=== PATIENT | female | born 1955 | race Caucasian/White ===

== ENCOUNTER → 2022-11-13 | Day surgery (SDC) | payer OTHER, MEDICARE ==
[2022-11-10 12:01] LABS: Hematocrit 42.3 % (36.0-45.0); Lymphocytes % 15.3 % (15.3-44.8); MCV 92.7 fL (80-100); MPV 7.3 fL (7.6-11.3); RBC Red Blood Cell Count 4.57 M/uL (3.86-4.86)
[2022-11-10 12:13] LABS: Potassium 4.1 mEq/L (3.5-5.1)
--- NOTE | 2022-11-12 13:58 | EKG ---
Test Date: 2022-11-10 Test Time: 11:42:05 [employer]: TIFFANY MEASUREMENT RESULTS: Intervals: Rate: 76 DE: 154 QRSD: 96 QT: 414 QTc: 465 [place]: P: 45 DE: 154 QRS: -15 T: 10 INTERPRETIVE STATEMENTS: Normal sinus rhythm Minimal voltage criteria for LVH, may be normal variant Borderline ECG No previous ECG available for comparison Electronically Signed On 11-12-22 13:55:50 CDT by Leno Rodgers
[~2022-11-13] MED LIST: CEFAZOLIN SODIUM 1 GM/VIAL ONE; FENTANYL CITR 100 MCG/2 ML ONE; HYDROCODONE/APAP 5/325 MG TAB ONE; KETOROLAC 30 MG/ML INJ ONE; LIDOCAINE 2% MPF 5 ML VIAL ONE; MIDAZOLAM HCL 2 MG/2 ML INJ ONE; ONDANSETRON 4 MG/2 ML VIAL ONE; dexAMETHasone 10 MG/ML VIAL ONE; propofoL 200 MG/20 ML VIAL IV ONE
[2022-11-13] MEDS: Ringers Lactate 1,000 ML IV ONE ×2 (10:20→10:58)
[2022-11-13 16:46] VITALS: BP 118/66; TEMP 97.1; O2SAT 98
--- NOTE | 2022-11-13 20:52 | OP ---
Date of Procedure: 11/13/2022 Surgeon: Boston Barton MD Preoperative Diagnosis: Right carpal tunnel syndrome. Postoperative Diagnosis: Right carpal tunnel syndrome. Procedure: Right open carpal tunnel release. Estimated Blood Loss: Less than 3 cc. Complications: There were no complications. Specimen: No pathology specimens sent. Indications: Ms. Reddy is a patient who unfortunately suffers carpal tunnel on both hands. The rig ht side appears to be most troublesome for her. She states she may also have some abnormal tendon mo tion of the 3rd digit; however, it does not frequently do this and she does not want this addressed o peratively today, although we did discuss these possibilities. Risks, benefits, and alternatives to open carpal tunnel release have been discussed with the patient. She states she understands things a s presented and wishes to proceed. Description Of Procedure: The patient was taken to the operating room and placed in supine position. General anesthesia was obtained by staff. Following this, well-padded tourniquet was placed on sup erior right arm. Right upper extremity was then prepped and draped in the usual sterile fashion for the procedure. After this, the arm was then elevated, but not exsanguinated and tourniquet was raise d. A standard incision was made, which parallels the thenar crease with slight ulnar deviation at th e most distal wrist crease. This was taken down carefully through skin only with meticulous hemostas is being maintained using bipolar electrocautery. This leads to the palmar fascia, which was then di vided longitudinally. Any obstructions over the transverse carpal ligament were then gently swept to the side and a small miri was made in the transverse carpal ligament. This was then extended from a proximal to distal direction until there were no constricting bands. It was then extended from a di stal to proximal direction until there were no constricting bands. The median nerve was identified a nd found to be purplish and definitely intact. At no time were any sharp instruments placed outside the direct operative field. The incision was then closed and she was placed in a well-padded sterile dressing and taken to recovery room. /ADAML Voice ID: [id number] Report ID: [id number]
== END ==
LOC: OR 09:51
PROVIDERS: ATTEND Orthopaedic Surgery
PROC: 01N50ZZ Release Median Nerve, Open Approach (ICD-10-PCS; principal; 2022-11-13 11:30)
DX: G56.01 Carpal tunnel syndrome, right upper limb (principal)
CPT/HCPCS: 93005; 85025; 80048; 36415; 64721; J2704; J2001; J2250; J3010; J1100; J2405 ×2; J7120; J0690